=== PATIENT | male | born 1960 | race Caucasian/White ===

== ENCOUNTER 2019-11-10 18:25 | Emergency (ER) | payer BC, OTHER ==
[~2019-11-10] VITALS: Ht 185.4 cm; Wt 108.7 kg
--- OUTSIDE RECORDS SUMMARY | 2019-11-10 18:32 | XMS REPORT ---
Author Author Rodrick Gilman [facility] Address [address] [place], [place] [address] Care Team Providers Care Him Manager Name Role Phone Vinnie Gilman PCP VINNIE JC PreferredProvider Allergies and Adverse Reactions Name Reaction Notes NO KNOWN DRUG ALLERGIES Plan of Treatment Not available. Medications Active Name Start Date Estimated Completion Date SIG Co mments allopurinol oral tablet 300 mg 11/06/2014 t michelle 1 tablet (300 mg) by oral route 2 times per day lisinopril-hydrochlorothiazide oral tablet 20-25 mg 12/18/2014 TAKE 1 TABLET BY MOUTH EVERY DAY lisinopril-hydrochlorothiazide 20-25 mg oral tablet 01/22/2015 TAKE 1 TABLET BY MOUTH DAILY lisinopril-hydrochlorothiazide 20-25 mg oral tablet 04/23/2015 TAKE 1 TABLET BY MOUTH DAILY allopurinol 300 mg oral tablet 05/19/2015 T MICHELLE 1 TABLET (300 MG) BY ORAL ROUTE 2 TIMES PER DAY Contrave 8-90 mg oral tablet extended release 05/19/2015 USE DIRECTED Contrave 8-90 mg oral tablet extended release 06/23/2015 USE DIRECTED lisinopril-hydrochlorothiazide 20-25 mg oral tablet 08/21/2015 TAKE 1 TABLET BY MOUTH DAILY lisinopril-hydrochlorothiazide 20-25 mg oral tablet 10/30/2015 TAKE 1 TABLET BY MOUTH DAILY lisinopril-hydrochlorothiazide 20-25 mg oral tablet 05/05/2016 TAKE 1 TABLET BY MOUTH DAILY indomethacin 50 mg oral capsule 10/14/2017 take 1 capsule (50 mg) by oral route 3 times per day with food for gout flare lisinopril-hydrochlorothiazide 20-25 mg oral tablet 02/08/2018 TAKE 1 TABLET BY MOUTH EVERY DAY Name Start Date Expiration Date SIG Comments Dewey Oral Tablet 5-40 mg 01/27/2010 05/27/2010 take 1 tablet (5-40 mg) by oral route daily for 30 days Medrol (Landon) Oral Tablets, Dose Pack 4 mg 02/08/2011 011 take as directed for 6 days Mobic Oral Tablet 15 mg 02/08/2011 04/09/2011 take 1 t ablet (15 mg) by oral route once daily for 30 days phentermine Oral tablet 37.5 mg 01/18/2012 1/2 po in the am lovastatin Oral Tablet 20 mg 09/27/2012 04/25/2013 sanjay e 1 tablet (20 mg) by oral route once daily with the evening meal for 30 days Contrave oral tablet extended release 8-90 mg 11/12/2014 take 2 tablets by oral route 2 times per day in the morning and evening for 30 days phentermine 37.5 mg oral tablet 08/20/2016 09/19/2016 take 1 tablet (37.5 mg) by oral route once daily one or two hours after breakfast for 30 days Discontinued Name Start Date Discontinued Date SIG Comments Lasix Oral Tablet 20 mg 12/22/2009 02/15/2018 one daily as need ed for edema allopurinol 300 mg oral tablet 09/24/2015 02/15/2018 T MICHELLE 1 TABLET (300 MG) BY ORAL ROUTE 2 TIMES PER DAY Contrave 8-90 mg oral tablet extended release 02/19/2016 USE DIRECTED Problem List Description Status Onset Hyperlipidemia Active Gout Active 11/19/2013 Non morbid obesity due to excess calories Active 08/20/2016 Hypercholesteremia Active 08/20/2016 Lipoma of head Active 08/20/2016 Essential hypertension Active 01/24/2018 Vital Signs Date Time BP-Sys(mm[Hg] BP-Mary Jo(mm[Hg]) HR(bpm) RR(rpm) Temp WT HT HC BMI BSA BMI Percentile O2 Sat(%) 02/15/2018 3:28:00 PM 132 mmHg 80 mmHg 71 bpm 16 rpm 98.4 F 249 lbs 73 in 32.8513 kg/m 2.4119 m 97 % 01/19/2018 7:54:00 AM 116 mmHg 76 mmHg 72 bpm 16 rpm 98.4 F 246 lbs 73 in 32.46 kg/m2 2.40 m2 98 % 08/20/2016 10:36:00 AM 128 mmHg 64 mmHg 86 bpm 16 rpm 97.4 F 262 lbs 73 in 34.5664 kg/m 2.4741 m 99 % 11/11/2014 3:26:00 PM 130 mmHg 60 mmHg 90 bpm 18 rpm 98.2 F 267 lbs 74 in 34.28 kg/m2 2.51 m2 97 % 11/26/2013 3:08:00 PM 144 mmHg 68 mmHg 78 bpm 20 rpm 98.8 F 268 lbs 74 in 34.4088 kg/m 2.5193 m 98 % 09/11/2012 3:05:00 PM 136 mmHg 80 mmHg 88 bpm 20 rpm 98.2 F 275 lbs 74 in 35.31 kg/m2 2.55 m2 97 % 01/17/2012 3:07:00 PM 118 mmHg 68 mmHg 82 bpm 278 lbs 74 in 35.6927 kg/m 2.5659 m 97 % 09/14/2010 3:11:00 PM 124 mmHg 82 mmHg 80 bpm 278 lbs 74 in 35.6927 kg/m 2.57 m2 12/22/2009 3:26:00 PM 142 mmHg 100 mmHg 80 bpm 271 lbs Social History Name Description Comments Uses seatbelts Alcohol Use - Occasional Tobacco Never smoker History of Procedures Date Ordered Description Order Status 08/20/2016 12:00 AM COMPLETE CBC W/AUTO DIFF WBC Returned 08/20/2016 12:00 AM COMPREHEN METABOLIC PANEL Returned 08/20/2016 12:00 AM LIPID PANEL Returned 08/20/2016 12:00 AM ROUTINE VENIPUNCTURE Reviewed 05/05/2017 12:00 AM COMPLETE CBC W/AUTO DIFF WBC Returned 05/05/2017 12:00 AM COMPREHEN METABOLIC PANEL Returned 05/05/2017 12:00 AM LIPID PANEL Returned 05/05/2017 12:00 AM ASSAY OF PSA TOTAL Returned 05/05/2017 12:00 AM ROUTINE VENIPUNCTURE Reviewed 09/11/2012 12:00 AM URINALYSIS AUTO W/O SCOPE Reviewed 09/11/2012 12:00 AM URINALYSIS AUTO W/O SCOPE Reviewed 01/13/2018 12:00 AM COMPLETE CBC W/AUTO DIFF WBC Returned 01/13/2018 12:00 AM COMPREHEN METABOLIC PANEL Returned 01/13/2018 12:00 AM LIPID PANEL Returned 01/13/2018 12:00 AM ROUTINE VENIPUNCTURE Reviewed 01/18/2018 12:00 AM ASSAY OF PSA TOTAL Returned 01/18/2018 12:00 AM ASSAY OF PSA FREE Returned 05/28/2013 12:00 AM COMPLETE CBC W/AUTO DIFF WBC Reviewed 05/28/2013 12:00 AM COMPREHEN METABOLIC PANEL Reviewed 05/28/2013 12:00 AM LIPID PANEL Reviewed 11/19/2013 12:00 AM COMPLETE CBC W/AUTO DIFF WBC Reviewed 11/19/2013 12:00 AM COMPREHEN METABOLIC PANEL Reviewed 11/19/2013 12:00 AM LIPID PANEL Reviewed 11/19/2013 12:00 AM Prostate Cancer Screening Reviewed 11/19/2013 12:00 AM ASSAY OF BLOOD/URIC ACID Reviewed 09/15/2010 12:00 AM URINALYSIS AUTO W/O SCOPE Reviewed 10/16/2014 12:00 AM COMPLETE CBC W/AUTO DIFF WBC Reviewed 10/16/2014 12:00 AM COMPREHEN METABOLIC PANEL Reviewed 10/16/2014 12:00 AM LIPID PANEL Reviewed 10/16/2014 12:00 AM Prostate Cancer Screening Reviewed 10/16/2014 12:00 AM ASSAY OF BLOOD/URIC ACID Reviewed Results Summary Date and Description Results 06/01/2013 6:30 AM WBC 5.3 RBC 4.68 HGB 14.90 g /dLHCT 44.80 %MCV 96.0 fLMCH 31.80 pgMCHC 33.30 g/dLRDW SD 45 RDW CV 13.0 %MPV 10.50 fLPLT 191 NRBC# 0.00 NRBC% 0.0 %NEUT 64.70 %%LYMP 24.10 %%MONO 8.70 %%EOS 2.10 %%BASO 0.40 %#NEUT 3.44 #LYMP 1.28 #MONO 0.46 #EOS 0.11 #BASO 0.02 MANUAL DIFF NOT IND GLUCOSE 111.0 mg/dLSODIUM 142.0 mmol/LPOTASSIUM 4.0 mmol/LCHLORIDE 105.0 mmol/LCO2 25.0 mmol/LBUN 17.0 mg/dLCREATININE 1.10 mg/dLSGOT/AST 23.0 IU/LSGPT/ALT 20.0 IU/LALK PHOS 59.0 IU/LTOTAL PROTEIN 6.90 g/dLALBUMIN 4.0 g/dLTOTAL BILI 0.80 mg/dLCALCIUM 9.50 mg/dLAGE 53 GFR NonAA 70 GFR AA 85 eGFR >60 mL/min/1.73 m2eGFR AA* >60 TRIGLYCERIDES 91.0 mg/dLCHOLESTEROL 222.0 mg/dLHDL 64.0 mg/dLTOT CHOL/HDL 3.5 LDL (CALC) 140.0 mg/dL 11/21/2013 6:25 AM URIC ACID 9.5 mg/dLWBC 4.8 R BC 4.57 HGB 14.50 g/dLHCT 43.20 %MCV 95.0 fLMCH 31.70 pgMCHC 33.60 g/dLRDW SD 45 RDW CV 12.90 %MPV 10.80 fLPLT 199 NRBC# 0.00 NRBC% 0.0 %NEUT 56.60 %%LYMP 30.50 %%MONO 10.20 %%EOS 1.70 %%BASO 1.0 %#NEUT 2.73 #LYMP 1.47 #MONO 0.49 #EOS 0.08 #BASO 0.05 MANUAL DIFF NOT IND GLUCOSE 94.0 mg/dLSODIUM 142.0 mmol/LPOTASSIUM 4.40 mmol/LCHLORIDE 105.0 mmol/LCO2 29.0 mmol/LBUN 18.0 mg/dLCREATININE 1.0 mg/dLSGOT/AST 19.0 IU/LSGPT/ALT 15.0 IU/LALK PHOS 53.0 IU/LTOTAL PROTEIN 7.10 g/dLALBUMIN 3.90 g/dLTOTAL BILI 0.90 mg/dLCALCIUM 9.60 mg/dLAGE 53 GFR NonAA 78 GFR AA 95 eGFR 60 eGFR AA* 60 TRIGLYCERIDES 87.0 mg/dLCHOLESTEROL 197.0 mg/dLHDL 58.0 mg/dLTOT CHOL/HDL 3.4 LDL (CALC) 122.0 mg/dLPSA TOTAL 0.70 ng/mL 10/24/2014 6:25 AM WBC 5.2 RBC 4.58 HGB 14.60 g /dLHCT 44.10 %MCV 96.0 fLMCH 31.90 pgMCHC 33.10 g/dLRDW SD 46 RDW CV 13.0 %MPV 10.40 fLPLT 171 NRBC# 0.00 NRBC% 0.0 %NEUT 59.50 %%LYMP 26.90 %%MONO 10.30 %%EOS 2.50 %%BASO 0.80 %#NEUT 3.07 #LYMP 1.39 #MONO 0.53 #EOS 0.13 #BASO 0.04 MANUAL DIFF NOT IND GLUCOSE 106.0 mg/dLSODIUM 142.0 mmol/LPOTASSIUM 4.0 mmol/LCHLORIDE 110.0 mmol/LCO2 24.0 mmol/LBUN 12.0 mg/dLCREATININE 1.10 mg/dLSGOT/AST 17.0 IU/LSGPT/ALT 18.0 IU/LALK PHOS 43.0 IU/LTOTAL PROTEIN 6.80 g/dLALBUMIN 3.90 g/dLTOTAL BILI 0.50 mg/dLCALCIUM 9.70 mg/dLAGE 54 GFR NonAA 70 GFR AA 85 eGFR >60 mL/min/1.73 m2eGFR AA* >60 PSA TOTAL 0.630 ng/mLTRIGLYCERIDES 79.0 mg/dLCHOLESTEROL 216.0 mg/dLHDL 58.0 mg/dLTOT CHOL/HDL 3.7 LDL (CALC) 142.0 mg/dLURIC ACID 9.4 mg/dL History Of Immunizations Not available. History of Past Illness Name Date of Onset Comments Hypertension Hyperlipidemia Essential Hypertension Dec 22 2009 3:27PM Edema Dec 22 2009 3:27PM General Medical Exam, Adult Dec 22 2009 3:27PM Gout Dec 22 2009 3:27PM Gout 11/19/2013 General Medical Exam, Adult Sep 14 2010 3:10PM Non morbid obesity due to excess calories 08/20/2016 Hypercholesteremia 08/20/2016 Lipoma of head 08/20/2016 Essential hypertension 01/24/2018 Essential Hypertension Jan 17 2012 3:11PM Body Mass Index [BMI]; body mass index b etween 30-39, adult; body mass index 30.0-30.9, adult Jan 17 2012 3:11PM General Medical Exam, Adult Sep 11 2012 3:07PM Hypertension May 28 2013 4:26PM Hyperlipidemia May 28 2013 4:26PM alf medication use May 28 2013 4:26PM Hypertension Nov 19 2013 4:26PM Hyperlipidemia Nov 19 2013 4:26PM Gout Nov 19 2013 4:26PM alf medication use Nov 19 2013 4:26PM Screening For Prostate Cancer Nov 19 2013 4:26PM Essential Hypertension Nov 26 2013 3:09PM Gout Nov 26 2013 3:09PM Hyperlipidemia Nov 26 2013 3:09PM Hypertension Oct 16 2014 3:43PM Hyperlipidemia Oct 16 2014 3:43PM Gout Oct 16 2014 3:43PM alf medication use Oct 16 2014 3:43PM Screening For Prostate Cancer Oct 16 2014 3:43PM Body Mass Index [BMI]; body mass index b etween 30-39, adult; body mass index 32.0-32.9, adult Nov 11 2014 3:27PM Gout Nov 11 2014 3:27PM Hypertension Nov 11 2014 3:27PM Hyperlipidemia Nov 11 2014 3:27PM Hypertension Aug 20 2016 11:43AM Hyperlipidemia Aug 20 2016 11:43AM Gout Aug 20 2016 11:43AM termite inspector medication use Aug 20 2016 11:43AM Non morbid obesity due to excess calories Aug 20 2016 10:38A M Hypertension Aug 20 2016 10:38AM Hypercholesteremia Aug 20 2016 10:38AM Lipoma of head Aug 20 2016 10:38AM Hypertension May 05 2017 7:11AM Hyperlipidemia May 05 2017 7:11AM Gout May 05 2017 7:11AM alf medication use May 05 2017 7:11AM Elevated PSA May 05 2017 7:11AM Hypertension Jan 13 2018 10:46AM Hyperlipidemia Jan 13 2018 10:46AM Gout Jan 13 2018 10:46AM termite inspector medication use Jan 13 2018 10:46AM Elevated PSA Jan 13 2018 10:46AM Elevated PSA Jan 18 2018 8:18AM Hypercholesteremia Jan 19 2018 7:55AM Essential hypertension Jan 19 2018 7:55AM History of gout Jan 19 2018 7:55AM Colon Cancer Screening Feb 15 2018 3:29PM Subcutaneous mass Feb 15 2018 3:29PM Payers Insurance Name Company Name Plan Name Plan Number Policy Number Yoan Group Number Start Date BCBS Bcbs [facility] [id number] N/ A [facility] [phone] May [employer] DOT 4-25- N/A BCBS Bcbs [facility] [id number] N/ A History of Encounters Visit Date Visit Type Provider 02/15/2018 Office visit Vinnie Gilman MD 01/19/2018 Office visit VINNIE BELTRAN 01/13/2018 Laboratory VINNIE BELTRAN 05/05/2017 Laboratory VINNIE BELTRAN 08/20/2016 Voided VINNIE JC PA 08/20/2016 Office visit VINNIE JC PA 11/11/2014 Office visit VINNIE BELTRAN 11/26/2013 Office visit VINNIE BELTRAN 09/11/2012 Office visit VINNIE BELTRAN 01/17/2012 Office visit VINNIE BELTRAN 09/14/2010 Office visit Vinnie LandinC 12/22/2009 Office visit Vinnie West
--- OUTSIDE RECORDS SUMMARY | 2019-11-10 18:32 | XMS REPORT ---
Author Author Rodrick Gilman [facility] oup Address [address] [place], [place] [id number] Care Team Providers Care Induction Coordination Power Engineer Name Role Phone Vinnie Gilman PCP VINNIE [...] HC BMI BSA BMI Percentile O2 Sat(%) 03/13/2018 3:19:00 PM 120 mmHg 86 mmHg 71 bpm 16 rpm 98.1 F 242 lbs 73 in 31.9277 kg/m 2.3778 m 97 % 02/15/2018 3:28:00 PM 132 mmHg 80 mmHg 71 bpm 16 rpm 98.4 F 249 lbs 73 in 32.85 kg/m2 2.41 m2 97 % 01/19/2018 7:54:00 AM 116 mmHg 76 mmHg 72 bpm 16 rpm 98.4 F 246 lbs 73 in 32.4555 kg/m 2.3973 m 98 % 08/20/2016 10:36:00 AM 128 mmHg 64 mmHg 86 bpm 16 rpm 97.4 F 262 lbs 73 in 34.57 kg/m2 2.47 m2 99 % 11/11/2014 3:26:00 PM 130 mmHg 60 mmHg 90 bpm 18 rpm 98.2 F 267 lbs 74 in 34.2804 kg/m 2.5146 m 97 % 11/26/2013 3:08:00 PM 144 mmHg 68 mmHg 78 bpm 20 rpm 98.8 F 268 lbs 74 in 34.41 kg/m2 2.52 m2 98 % 09/11/2012 3:05:00 PM 136 mmHg 80 mmHg 88 bpm 20 rpm 98.2 F 275 lbs 74 in 35.3075 kg/m 2.552 m 97 % 01/17/2012 3:07:00 PM 118 mmHg 68 mmHg 82 bpm 278 lbs 74 in 35.69 kg/m2 2.57 m2 97 % 09/14/2010 3:11:00 PM 124 mmHg 82 mmHg 80 bpm 278 lbs 74 in 35.6927 kg/m 2.5659 m 12/22/2009 3:26:00 PM 142 mmHg 100 mmHg [...] 2013 4:26PM Hyperlipidemia May 28 2013 4:26PM intermediate designer medication use May 28 2013 4:26PM Hypertension Nov 19 2013 4:26PM Hyperlipidemia Nov 19 2013 4:26PM Gout Nov 19 2013 4:26PM group home medication use Nov 19 2013 4:26PM Screening For Prostate Cancer Nov 19 2013 4:26PM Essential Hypertension Nov 26 2013 3:09PM Gout Nov 26 2013 3:09PM Hyperlipidemia Nov 26 2013 3:09PM Hypertension Oct 16 2014 3:43PM Hyperlipidemia Oct 16 2014 3:43PM Gout Oct 16 2014 3:43PM intermediate designer medication use Oct 16 2014 3:43PM Screening [...] 2016 11:43AM Gout Aug 20 2016 11:43AM group home medication use Aug 20 2016 11:43AM Non morbid obesity due to excess calories Aug 20 2016 10:38A M Hypertension Aug 20 2016 10:38AM Hypercholesteremia Aug 20 2016 10:38AM Lipoma of head Aug 20 2016 10:38AM Hypertension May 05 2017 7:11AM Hyperlipidemia May 05 2017 7:11AM Gout May 05 2017 7:11AM intermediate designer medication use May 05 2017 7:11AM Elevated PSA May 05 2017 7:11AM Hypertension Jan 13 2018 10:46AM Hyperlipidemia Jan 13 2018 10:46AM Gout Jan 13 2018 10:46AM intermediate designer medication use Jan 13 2018 10:46AM Elevated PSA Jan 13 2018 10:46AM Elevated PSA Jan 18 2018 8:18AM Hypercholesteremia Jan 19 2018 7:55AM Essential hypertension Jan 19 2018 7:55AM History of gout Jan 19 2018 7:55AM Colon Cancer Screening Feb 15 2018 3:29PM Subcutaneous mass Feb 15 2018 3:29PM Encounter for examination following surgery Mar 13 2018 3:2 0PM Postoperative Follow-up Mar 13 2018 3:20PM Payers Insurance Name Company Name Plan Name Plan Number Policy Number Yoan cy Group Number Start Date BCBS [employer] [facility] [place] [id number] N/ A [facility] [phone] May [employer] DOT 09-14-10 N/A BCBS [employer] [facility] [place] [id number] N/ A History of Encounters Visit Date Visit Type Provider 03/13/2018 Office visit Vinnie Gilman MD 03/03/2018 Surgery Vinnie Gilman MD 02/15/2018 Office visit Vinnie Gilman MD 01/19/2018 Office visit VINNIE BELTRAN 01/13/2018 Laboratory VINNIE BELTRAN 05/05/2017 Laboratory VINNIE BELTRAN 08/20/2016 Voided VINNIE BELTRAN 08/20/2016 Office visit VINNIE BELTRAN 11/11/2014 Office visit VINNIE BELTRAN 11/26/2013 Office visit VINNIE BELTRAN 09/11/2012 Office visit VINNIE BELTRAN 01/17/2012 Office visit VINNIE BELTRAN 09/14/2010 Office visit Vinnie West 12/22/2009 Office visit Vinnie West
--- OUTSIDE RECORDS SUMMARY | 2019-11-10 18:32 | XMS REPORT ---
Author Author Rodrick JC [facility] oup Address [address] [place], [place] [address] Care Team Providers Care Supervisor Carding Name Role Phone VINNIE JC PCP VINNIE JC PreferredProvider Allergies and Adverse Reactions Name Reaction Notes NO KNOWN DRUG ALLERGIES Plan of Treatment Not available. Medications Active Name Start Date Estimated Completion Date SIG Co mments Lasix Oral Tablet 20 mg 12/22/2009 one daily as need ed for edema allopurinol oral tablet 300 mg 11/06/2014 t [...] 08/21/2015 TAKE 1 TABLET BY MOUTH DAILY allopurinol 300 mg oral tablet 09/24/2015 T MICHELLE 1 TABLET (300 MG) BY ORAL ROUTE 2 TIMES PER DAY lisinopril-hydrochlorothiazide 20-25 mg oral tablet 10/30/2015 TAKE 1 TABLET BY MOUTH DAILY lisinopril-hydrochlorothiazide 20-25 mg oral tablet 05/05/2016 TAKE 1 TABLET BY MOUTH DAILY indomethacin 50 mg oral capsule 10/14/2017 take 1 capsule (50 mg) by oral route 3 times per day with food for gout flare lisinopril-hydrochlorothiazide 20-25 mg oral tablet 01/11/2018 TAKE 1 TABLET BY MOUTH EVERY DAY [...] days phentermine Oral tablet 37.5 mg 01/18/2012 1/ po in the am lovastatin Oral Tablet [...] Name Start Date Discontinued Date SIG Comments Contrave 8-90 mg oral tablet extended release 02/19/2016 USE DIRECTED Problem List Description Status Onset Hyperlipidemia Active Gout Active 11/19/2013 Non morbid obesity due to excess calories Active 08/20/2016 Hypercholesteremia Active 08/20/2016 Lipoma of head Active 08/20/2016 Essential hypertension Active 01/24/2018 Vital Signs Date Time BP-Sys(mm[Hg] BP-Mary Jo(mm[Hg]) HR(bpm) RR(rpm) Temp WT HT HC BMI BSA BMI Percentile O2 Sat(%) 01/19/2018 7:54:00 AM 116 mmHg 76 mmHg [...] 2013 4:26PM Hyperlipidemia May 28 2013 4:26PM jail medication use May 28 2013 4:26PM Hypertension Nov 19 2013 4:26PM Hyperlipidemia Nov 19 2013 4:26PM Gout Nov 19 2013 4:26PM jail medication use Nov 19 2013 4:26PM Screening For Prostate Cancer Nov 19 2013 4:26PM Essential Hypertension Nov 26 2013 3:09PM Gout Nov 26 2013 3:09PM Hyperlipidemia Nov 26 2013 3:09PM Hypertension Oct 16 2014 3:43PM Hyperlipidemia Oct 16 2014 3:43PM Gout Oct 16 2014 3:43PM jail medication use Oct 16 2014 3:43PM Screening [...] 2016 11:43AM Gout Aug 20 2016 11:43AM jail medication use Aug 20 2016 11:43AM Non morbid obesity due to excess calories Aug 20 2016 10:38A M Hypertension Aug 20 2016 10:38AM Hypercholesteremia Aug 20 2016 10:38AM Lipoma of head Aug 20 2016 10:38AM Hypertension May 05 2017 7:11AM Hyperlipidemia May 05 2017 7:11AM Gout May 05 2017 7:11AM 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 DOT 4-25-11 N/A History of Encounters Visit Date Visit Type Provider 01/19/2018 Office visit VINNIE BELTRAN 01/13/2018 Laboratory VINNIE BELTRAN 05/05/2017 Laboratory VINNIE BELTRAN 08/20/2016 Voided VINNIE BELTRAN 08/20/2016 Office visit VINNIE BELTRAN 11/11/2014 Office visit VINNIE BELTRAN 11/26/2013 Office visit VINNIE BELTRAN 09/11/2012 Office visit VINNIE BELTRAN 01/17/2012 Office visit VINNIE BELTRAN 09/14/2010 Office visit Vinnie West 12/22/2009 Office visit Vinnie West
--- OUTSIDE RECORDS SUMMARY | 2019-11-10 18:33 | XMS REPORT ---
Author Author Rodrick JC [facility] Phys[facility] oup Address [address] [place], [place] [address] Care Team Providers Care Professor Of Religious Studies Name Role Phone VINNIE JC PCP VINNIE JC PreferredProvider Allergies and Adverse Reactions Name Reaction Notes NO KNOWN DRUG ALLERGIES Plan of Treatment Planned Activity Comments Planned Date Planned Time Plan/Goal CBC with Differential 01/13/2018 12:00 AM CMP 01/13/2018 12:00 AM Lipid Blood Profile 01/13/2018 12:00 AM Medications Active Name Start Date Estimated Completion [...] 30 days phentermine Oral tablet 37.5 mg 01/18/2012/ po in the am lovastatin Oral Tablet [...] Active 08/20/2016 Lipoma of head Active 08/20/2016 Vital Signs Date Time BP-Sys(mm[Hg] BP-Mary Jo(mm[Hg]) HR(bpm) RR(rpm) Temp WT HT HC BMI BSA BMI Percentile O2 Sat(%) 08/20/2016 10:36:00 AM 128 mmHg 64 mmHg [...] AUTO W/O SCOPE Reviewed 01/13/2018 12:00 AM ROUTINE VENIPUNCTURE Reviewed 05/28/2013 12:00 AM COMPLETE CBC W/AUTO DIFF [...] Hypercholesteremia 08/20/2016 Lipoma of head 08/20/2016 Essential Hypertension Jan 17 2012 3:11PM Body Mass Index [BMI]; body mass index b etween 30-39, adult; body mass index 30.0-30.9, adult Jan 17 2012 3:11PM General Medical Exam, Adult Sep 11 2012 3:07PM Hypertension May 28 2013 4:26PM Hyperlipidemia May 28 2013 4:26PM [facility] medication use May 28 2013 4:26PM Hypertension Nov 19 2013 4:26PM Hyperlipidemia Nov 19 2013 4:26PM Gout Nov 19 2013 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 2013 4:26PM Screening For Prostate Cancer Nov 19 2013 4:26PM Essential Hypertension Nov 26 2013 3:09PM Gout Nov 26 2013 3:09PM Hyperlipidemia Nov 26 2013 3:09PM Hypertension Oct 16 2014 3:43PM Hyperlipidemia Oct 16 2014 3:43PM Gout Oct 16 2014 3:43PM [facility] medication use Oct 16 2014 3:43PM Screening [...] 2016 11:43AM Gout Aug 20 2016 11:43AM [facility] medication use Aug 20 2016 11:43AM Non morbid obesity due to excess calories Aug 20 2016 10:38A M Hypertension Aug 20 2016 10:38AM Hypercholesteremia Aug 20 2016 10:38AM Lipoma of head Aug 20 2016 10:38AM Hypertension May 05 2017 7:11AM Hyperlipidemia May 05 2017 7:11AM Gout May 05 2017 7:11AM service crew supervisor medication use May 05 2017 7:11AM Elevated PSA May 05 2017 7:11AM Hypertension Jan 13 2018 10:46AM Hyperlipidemia Jan 13 2018 10:46AM Gout Jan 13 2018 10:46AM [facility] medication use Jan 13 2018 10:46AM Elevated PSA Jan 13 2018 10:46AM Payers Insurance Name Company Name Plan Name Plan Number Policy Number Yoan cy Group Number Start Date BCBS Bcbs [facility] [id number] N/ A [facility] [phone] May [employer] DOT 4-25-11 N/A History of Encounters Visit Date Visit Type Provider 01/13/2018 Laboratory VINNIE BELTRAN 05/05/2017 Laboratory VINNIE BELTRAN 08/20/2016 Voided VINNIE BELTRAN 08/20/2016 Office visit VINNIE BELTRAN 11/11/2014 Office visit VINNIE BELTRAN 11/26/2013 Office visit VINNIE BELTRAN 09/11/2012 Office visit VINNIE BELTRAN 01/17/2012 Office visit VINNIE BELTRAN 09/14/2010 Office visit Vinnie West 12/22/2009 Office visit Vinnie West
--- OUTSIDE RECORDS SUMMARY | 2019-11-10 18:33 | XMS REPORT ---
Author [facility] Organization [facility] ou Address [address] [place], [place] [id number] Care Team Providers Care Technical Sme Name Role Phone PCP Unavailable Allergies and Adverse Reactions Name Reaction Notes NO KNOWN DRUG ALLERGIES Plan of Treatment Not available. Medications Active Name Start Date Estimated Completion Date SIG Co mments Lasix Oral Tablet 20 mg 12/22/2009 one daily as need ed for edema indomethacin oral capsule 50 mg 04/16/2014 take 1 capsule (50 mg) by oral route 3 times per day with food for gout flare lisinopril-hydrochlorothiazide Oral tablet 20-25 mg 10/16/2014 12/15/2014 TAKE 1 TABLET BY MOUTH EVERY DAY allopurinol oral tablet 300 mg 11/06/2014 t corina 1 tablet (300 mg) by oral route 2 times per day Contrave oral tablet extended release 8-90 mg 11/12/2014 take 2 tablets by oral route 2 times per day in the morning and evening for 30 days Name Start Date Expiration Date SIG Comments [...] with the evening meal for 30 days Problem List Description Status Onset Hypertension Active Hyperlipidemia Active Gout Active 11/19/2013 Vital Signs Date Time BP-Sys(mm[Hg] BP-Mary Jo(mm[Hg]) HR(bpm) RR(rpm) Temp WT HT HC BMI BSA BMI Percentile O2 Sat(%) 11/11/2014 3:26:00 PM 130 mmHg 60 mmHg [...] mmHg 80 bpm 278 lbs 74 in 35.69 kg/m2 2.57 m2 12/22/2009 3:26:00 PM 142 mmHg 100 mmHg 80 bpm 271 lbs Social History Name Description Comments Alcohol Use - Occasional Tobacco Never smoker History of Procedures Date Ordered Description Order Status 09/11/2012 12:00 AM URINALYSIS AUTO W/O SCOPE Reviewed 09/11/2012 12:00 AM URINALYSIS AUTO W/O SCOPE Reviewed 05/28/2013 12:00 AM COMPLETE CBC W/AUTO DIFF WBC Returned 05/28/2013 12:00 AM COMPREHEN METABOLIC PANEL Returned 05/28/2013 12:00 AM LIPID PANEL Returned 11/19/2013 12:00 AM COMPLETE CBC W/AUTO DIFF WBC Reviewed 11/19/2013 12:00 AM COMPREHEN METABOLIC PANEL Reviewed 11/19/2013 12:00 AM LIPID PANEL Reviewed 11/19/2013 12:00 AM ASSAY OF BLOOD/URIC ACID Reviewed 09/15/2010 12:00 AM URINALYSIS AUTO W/O SCOPE Reviewed 10/16/2014 12:00 AM COMPLETE CBC W/AUTO DIFF WBC Returned 10/16/2014 12:00 AM COMPREHEN METABOLIC PANEL Returned 10/16/2014 12:00 AM LIPID PANEL Returned 10/16/2014 12:00 AM ASSAY OF BLOOD/URIC ACID Returned Results Summary Data and Description Results 12/26/2009 6:23 AM TRIGLYCERIDES 77.0 mg/dLCHOL ESTEROL 199.0 mg/dLHDL 68.0 mg/dLLDL 105.0 mg/dLURIC ACID 6.9 mg/dLWBC 5.9 RBC 4.84 HGB 15.20 g/dLHCT 45.60 %MCV 94.0 fLMCH 31.40 pgMCHC 33.30 g/dLRDW CV 13.50 %MPV 10.80 fLPLT 183 %NEUT 56.80 %%LYMP 29.40 %%MONO 10.0 %%EOS 3.10 %%BASO 0.70 %#NEUT 3.35 #LYMP 1.73 #MONO 0.59 #EOS 0.18 #BASO 0.04 GLUCOSE 93.0 mg/dLSODIUM 139.0 mmol/LPOTASSIUM 4.90 mmol/LCHLORIDE 108.0 mmol/LCO2 18.0 mmol/LBUN 12.0 mg/dLCREATININE 0.90 mg/dLSGOT/AST 25.0 IU/LSGPT/ALT 19.0 IU/LALK PHOS 46.0 IU/LTOTAL PROTEIN 7.50 g/dLALBUMIN 4.0 g/dLTOTAL BILI 0.30 mg/dLCALCIUM 9.30 mg/dLeGFR >60 mL/min/1.73 m2 05/27/2011 6:50 AM WBC 5.6 RBC 4.78 HGB 15.40 g /dLHCT 46.60 %MCV 98.0 fLMCH 32.20 pgMCHC 33.0 g/dLRDW CV 12.80 %MPV 10.90 fLPLT 205 GLUCOSE 102.0 mg/dLSODIUM 141.0 mmol/LPOTASSIUM 4.30 mmol/LCHLORIDE 102.0 mmol/LCO2 29.0 mmol/LBUN 20.0 mg/dLCREATININE 1.10 mg/dLSGOT/AST 27.0 IU/LSGPT/ALT 36.0 IU/LALK PHOS 55.0 IU/LTOTAL PROTEIN 7.50 g/dLALBUMIN 4.40 g/dLTOTAL BILI 0.70 mg/dLCALCIUM 10.0 mg/dLeGFR >60 mL/min/1.73 [id number] 98.0 mg/dLCHOLESTEROL 257.0 mg/dLHDL 65.0 mg/dLLDL (CALC) 172.0 mg/dLPSA TOTAL 0.640 ng/mL 12/23/2011 7:10 AM TRIGLYCERIDES 73.0 mg/dLCHOL ESTEROL 203.0 mg/dLHDL 64.0 mg/dLLDL 114.0 mg/dLGLUCOSE 103.0 mg/dLSODIUM 139.0 mmol/LPOTASSIUM 4.0 mmol/LCHLORIDE 108.0 mmol/LCO2 28.0 mmol/LBUN 14.0 mg/dLCREATININE 1.10 mg/dLSGOT/AST 19.0 IU/LSGPT/ALT 20.0 IU/LALK PHOS 46.0 IU/LTOTAL PROTEIN 7.20 g/dLALBUMIN 4.10 g/dLTOTAL BILI 0.60 mg/dLCALCIUM 10.0 mg/dLeGFR 60 09/15/2012 6:50 AM WBC 5.4 RBC 4.88 HGB 15.60 g /dLHCT 46.30 %MCV 95.0 fLMCH 32.0 pgMCHC 33.70 g/dLRDW CV 12.50 %MPV 10.70 fLPLT 185 %NEUT 61.40 %%LYMP 26.20 %%MONO 9.80 %%EOS 2.0 %%BASO 0.60 %#NEUT 3.31 #LYMP 1.41 #MONO 0.53 #EOS 0.11 #BASO 0.03 GLUCOSE 104.0 mg/dLSODIUM 140.0 mmol/LPOTASSIUM 3.80 mmol/LCHLORIDE 103.0 mmol/LCO2 28.0 mmol/LBUN 13.0 mg/dLCREATININE 1.0 mg/dLSGOT/AST 21.0 IU/LSGPT/ALT 18.0 IU/LALK PHOS 50.0 IU/LTOTAL PROTEIN 7.60 g/dLALBUMIN 4.20 g/dLTOTAL BILI 1.0 mg/dLCALCIUM 10.50 mg/dLeGFR 60 TRIGLYCERIDES 123.0 mg/dLCHOLESTEROL 221.0 mg/dLHDL 58.0 mg/dLLDL (CALC) 138.0 mg/dLPSA TOTAL 0.550 ng/mL 06/01/2013 6:30 AM WBC 5.3 RBC 4.68 HGB 14.90 g /dLHCT 44.80 %MCV 96.0 fLMCH 31.80 pgMCHC 33.30 g/dLRDW CV 13.0 %MPV 10.50 fLPLT 191 %NEUT 64.70 %%LYMP 24.10 %%MONO 8.70 %%EOS 2.10 %%BASO 0.40 %#NEUT 3.44 #LYMP 1.28 #MONO 0.46 #EOS 0.11 #BASO 0.02 GLUCOSE 111.0 mg/dLSODIUM 142.0 mmol/LPOTASSIUM 4.0 mmol/LCHLORIDE 105.0 mmol/LCO2 25.0 mmol/LBUN 17.0 mg/dLCREATININE 1.10 mg/dLSGOT/AST 23.0 IU/LSGPT/ALT 20.0 IU/LALK PHOS 59.0 IU/LTOTAL PROTEIN 6.90 g/dLALBUMIN 4.0 g/dLTOTAL BILI 0.80 mg/dLCALCIUM 9.50 mg/dLeGFR >60 mL/min/1.73 [id number] 91.0 mg/dLCHOLESTEROL 222.0 mg/dLHDL 64.0 mg/dLLDL (CALC) 140.0 mg/dL 11/21/2013 6:25 AM URIC ACID 9.5 mg/dLWBC 4.8 R BC 4.57 HGB 14.50 g/dLHCT 43.20 %MCV 95.0 fLMCH 31.70 pgHC 33.60 g/dLRDW CV 12.90 %MPV 10.80 fLPLT 199 %NEUT 56.60 %%LYMP 30.50 %%MONO 10.20 %%EOS 1.70 %%BASO 1.0 %#NEUT 2.73 #LYMP 1.47 #MONO 0.49 #EOS 0.08 #BASO 0.05 GLUCOSE 94.0 mg/dLSODIUM 142.0 mmol/LPOTASSIUM 4.40 mmol/LCHLORIDE 105.0 mmol/LCO2 29.0 mmol/LBUN 18.0 mg/dLCREATININE 1.0 mg/dLSGOT/AST 19.0 IU/LSGPT/ALT 15.0 IU/LALK PHOS 53.0 IU/LTOTAL PROTEIN 7.10 g/dLALBUMIN 3.90 g/dLTOTAL BILI 0.90 mg/dLCALCIUM 9.60 mg/dLeGFR 60 TRIGLYCERIDES 87.0 mg/dLCHOLESTEROL 197.0 mg/dLHDL 58.0 mg/dLLDL (CALC) 122.0 mg/dLPSA TOTAL 0.70 ng/mL 10/24/2014 6:25 AM WBC 5.2 RBC 4.58 HGB 14.60 g /dLHCT 44.10 %MCV 96.0 fLMCH 31.90 pgMCHC 33.10 g/dLRDW CV 13.0 %MPV 10.40 fLPLT 171 %NEUT 59.50 %%LYMP 26.90 %%MONO 10.30 %%EOS 2.50 %%BASO 0.80 %#NEUT 3.07 #LYMP 1.39 #MONO 0.53 #EOS 0.13 #BASO 0.04 GLUCOSE 106.0 mg/dLSODIUM 142.0 mmol/LPOTASSIUM 4.0 mmol/LCHLORIDE 110.0 mmol/LCO2 24.0 mmol/LBUN 12.0 mg/dLCREATININE 1.10 mg/dLSGOT/AST 17.0 IU/LSGPT/ALT 18.0 IU/LALK PHOS 43.0 IU/LTOTAL PROTEIN 6.80 g/dLALBUMIN 3.90 g/dLTOTAL BILI 0.50 mg/dLCALCIUM 9.70 mg/dLeGFR >60 mL/min/1.73 m2PSA TOTAL 0.630 ng/mLTRIGLYCERIDES 79.0 mg/dLCHOLESTEROL 216.0 mg/dLHDL 58.0 mg/dLLDL (CALC) 142.0 mg/dLURIC ACID 9.4 mg/dL History Of Immunizations Not available. 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 DOT -- N/A History of Encounters Visit Date Visit Type Provider 11/11/2014 Office visit VINNIE BELTRAN 11/26/2013 Office visit VINNIE BELTRAN 09/11/2012 Office visit VINNIE BELTRAN 01/17/2012 Office visit VINNIE BELTRAN 09/14/2010 Office visit Vinnie West 12/22/2009 Office visit Vinnie West
--- OUTSIDE RECORDS SUMMARY | 2019-11-10 18:33 | XMS REPORT ---
Author Author Rodrick JC Organization [facility] Physicians oup Address [address] [facility] [address] [place], [place] [id number] Care Team Providers Care Camp Tender Name Role Phone VINNIE JC PCP Unavailable VINNIE JC PreferredProvider Unavailable Allergies and Adverse Reactions Name Reaction [...] per day with food for gout flare allopurinol oral tablet 300 mg 11/06/2014 t [...] 05/05/2016 TAKE 1 TABLET BY MOUTH DAILY lisinopril-hydrochlorothiazide 20-25 mg oral tablet 08/20/2016 01/17/2017 TAKE 1 TABLET BY MOUTH EVERY DAY phentermine 37.5 mg oral tablet 08/20/2016 09/19/2016 take 1 tablet (37.5 mg) by oral route once daily one or two hours after breakfast for 30 days Name Start Date Expiration [...] 30 days phentermine Oral tablet 37.5 mg 01/18/201205/24 po in the am lovastatin Oral Tablet 20 mg 09/27/2012 04/25/2013 sanjay e 1 tablet (20 mg) by oral route once daily with the evening meal for 30 days Contrave oral tablet extended release 8-90 mg 11/12/2014 take 2 tablets by oral route 2 times per day in the morning and evening for 30 days Discontinued Name Start Date [...] Returned 08/20/2016 12:00 AM ROUTINE VENIPUNCTURE Reviewed 09/11/2012 12:00 [...] ASSAY OF BLOOD/URIC ACID Reviewed Results Summary Data and Description Results 12/26/2009 6:23 AM TRIGLYCERIDES 77.0 mg/dLCHOL ESTEROL 199.0 mg/dLHDL 68.0 mg/dLTOT CHOL/HDL 2.9 LDL 105.0 mg/dLURIC ACID 6.9 mg/dLWBC 5.9 RBC 4.84 HGB 15.20 g/dLHCT 45.60 %MCV 94.0 fLMCH 31.40 pgMCHC 33.30 g/dLRDW SD 47 RDW CV 13.50 %MPV 10.80 fLPLT 183 NRBC# 0.00 NRBC% 0.0 %NEUT 56.80 %%LYMP 29.40 %%MONO 10.0 %%EOS 3.10 %%BASO 0.70 %#NEUT 3.35 #LYMP 1.73 #MONO 0.59 #EOS 0.18 #BASO 0.04 MANUAL DIFF NOT IND GLUCOSE 93.0 mg/dLSODIUM 139.0 mmol/LPOTASSIUM 4.90 mmol/L SPECIMEN CHLORIDE 108.0 mmol/LCO2 18.0 mmol/LBUN 12.0 mg/dLCREATININE 0.90 mg/dLSGOT/AST 25.0 IU/LSGPT/ALT 19.0 IU/LALK PHOS 46.0 IU/LTOTAL PROTEIN 7.50 g/dLALBUMIN 4.0 g/dLTOTAL BILI 0.30 mg/dLCALCIUM 9.30 mg/dLAGE 49 GFR NonAA 90 GFR AA 109 eGFR >60 mL/min/1.73 m2eGFR AA* >60 05/27/2011 6:50 AM WBC 5.6 RBC 4.78 HGB 15.40 g /dLHCT 46.60 %MCV 98.0 fLMCH 32.20 pgMCHC 33.0 g/dLRDW SD 46 RDW CV 12.80 %MPV 10.90 fLPLT 205 NRBC# 0.00 NRBC% 0.0 GLUCOSE 102.0 mg/dLSODIUM 141.0 mmol/LPOTASSIUM 4.30 mmol/LCHLORIDE 102.0 mmol/LCO2 29.0 mmol/LBUN 20.0 mg/dLCREATININE 1.10 mg/dLSGOT/AST 27.0 IU/LSGPT/ALT 36.0 IU/LALK PHOS 55.0 IU/LTOTAL PROTEIN 7.50 g/dLALBUMIN 4.40 g/dLTOTAL BILI 0.70 mg/dLCALCIUM 10.0 mg/dLAGE 51 GFR NonAA 71 GFR AA 86 eGFR >60 mL/min/1.73 m2eGFR AA* >60 TRIGLYCERIDES 98.0 mg/dLCHOLESTEROL 257.0 mg/dLHDL 65.0 mg/dLTOT CHOL/HDL 4.0 LDL (CALC) 172.0 mg/dLPSA TOTAL 0.640 ng/mL 12/23/2011 7:10 AM TRIGLYCERIDES 73.0 mg/dLCHOL ESTEROL 203.0 mg/dLHDL 64.0 mg/dLTOT CHOL/HDL 3.2 LDL 114.0 mg/dLGLUCOSE 103.0 mg/dLSODIUM 139.0 mmol/LPOTASSIUM 4.0 mmol/LCHLORIDE 108.0 mmol/LCO2 28.0 mmol/LBUN 14.0 mg/ dLCREATININE 1.10 mg/dLSGOT/AST 19.0 IU/LSGPT/ALT 20.0 IU/LALK PHOS 46.0 IU/LTOTAL PROTEIN 7.20 g/dLALBUMIN 4.10 g/dLTOTAL BILI 0.60 mg/dLCALCIUM 10.0 mg/dLAGE 51 GFR NonAA 71 GFR AA 86 eGFR 60 eGFR AA* 60 09/15/2012 6:50 AM WBC 5.4 RBC 4.88 HGB 15.60 g /dLHCT 46.30 %MCV 95.0 fLMCH 32.0 pgMCHC 33.70 g/dLRDW SD 44 RDW CV 12.50 %MPV 10.70 fLPLT 185 NRBC# 0.00 NRBC% 0.0 %NEUT 61.40 %%LYMP 26.20 %%MONO 9.80 %%EOS 2.0 %%BASO 0.60 %#NEUT 3.31 #LYMP 1.41 #MONO 0.53 #EOS 0.11 #BASO 0.03 MANUAL DIFF NOT IND GLUCOSE 104.0 mg/dLSODIUM 140.0 mmol/LPOTASSIUM 3.80 mmol/LCHLORIDE 103.0 mmol/LCO2 28.0 mmol/LBUN 13.0 mg/dLCREATININE 1.0 mg/dLSGOT/AST 21.0 IU/LSGPT/ALT 18.0 IU/LALK PHOS 50.0 IU/LTOTAL PROTEIN 7.60 g/dLALBUMIN 4.20 g/dLTOTAL BILI 1.0 mg/dLCALCIUM 10.50 mg/dLAGE 52 GFR NonAA 78 GFR AA 95 eGFR 60 eGFR AA* 60 TRIGLYCERIDES 123.0 mg/dLCHOLESTEROL 221.0 mg/dLHDL 58.0 mg/dLTOT CHOL/HDL 3.8 LDL (CALC) 138.0 mg/dLPSA TOTAL 0.550 ng/mL 06/01/2013 [...] LDL (CALC) 142.0 mg/dLURIC ACID 9.4 mg/dL 08/20/2016 4:00 PM WBC 6.2 RBC 4.92 HGB 15.30 g /dLHCT 46.80 %MCV 95.0 fLMCH 31.10 pgMCHC 32.70 g/dLRDW SD 43 RDW CV 12.20 %MPV 11.10 fLPLT 194 NRBC# 0.00 NRBC% 0.0 %NEUT 71.60 %%LYMP 20.20 %%MONO 6.50 %%EOS 0.70 %%BASO 0.70 %#NEUT 4.41 #LYMP 1.24 #MONO 0.40 #EOS 0.04 #BASO 0.04 MANUAL DIFF NOT IND GLUCOSE 110.0 mg/dLSODIUM 141.0 mmol/LPOTASSIUM 3.80 mmol/LCHLORIDE 104.0 mmol/LCO2 26.0 mmol/LBUN 13.0 mg/dLCREATININE 1.0 mg/dLSGOT/AST 21.0 IU/LSGPT/ALT 21.0 IU/LALK PHOS 47.0 IU/LTOTAL PROTEIN 7.30 g/dLALBUMIN 4.30 g/dLTOTAL BILI 0.70 mg/dLCALCIUM 10.50 mg/dLAGE 56 GFR NonAA 77 GFR AA 93 eGFR >60 mL/min/1.73meGFR AA* >60 TRIGLYCERIDES 80.0 mg/dLCHOLESTEROL 237.0 mg/dLHDL 59.0 mg/dLTOT CHOL/HDL 4.0 LDL (CALC) 162.0 mg/dL History Of Immunizations Not available. 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 2013 4:26PM Hypertension Nov 19 2013 4:26PM Hyperlipidemia Nov 19 2013 4:26PM Gout Nov 19 2013 4:26PM FPC medication use Nov 19 2013 4:26PM Screening For Prostate Cancer Nov 19 2013 4:26PM Essential Hypertension Nov 26 2013 3:09PM Gout Nov 26 2013 3:09PM Hyperlipidemia Nov 26 2013 3:09PM Hypertension Oct 16 2014 3:43PM Hyperlipidemia Oct 16 2014 3:43PM Gout Oct 16 2014 3:43PM FPC medication use Oct 16 2014 3:43PM Screening [...] 2016 11:43AM Gout Aug 20 2016 11:43AM FPC medication use Aug 20 2016 11:43AM Non morbid obesity due to excess calories Aug 20 2016 10:38A M Hypertension Aug 20 2016 10:38AM Hypercholesteremia Aug 20 2016 10:38AM Lipoma of head Aug 20 2016 10:38AM Payers Insurance Name Company Name Plan Name Plan Number Policy Number Yoan cy Group [id number] N[facility] A [facility] [phone] May [employer] DOT 4-- N/A History of Encounters Visit Date Visit Type Provider 08/20/2016 Office visit VINNIE BELTRAN 08/20/2016 Office visit VINNIE BELTRAN 11/11/2014 Office visit VINNIE BELTRAN 11/26/2013 Office visit VINNIE BELTRAN 09/11/2012 Office visit VINNIE BELTRAN 01/17/2012 Office visit VINNIE BELTRAN 09/14/2010 Office visit Vinnie West 12/22/2009 Office visit Vinnie West
--- OUTSIDE RECORDS SUMMARY | 2019-11-10 18:33 | XMS REPORT ---
Author Author Rodrick JC [facility] Physicians oup Address [address] [place], [place] [address] Care Team Providers Care Last Code Striper Name Role Phone VINNIE JC PCP VINNIE JC PreferredProvider Allergies and Adverse Reactions Name Reaction Notes NO KNOWN DRUG ALLERGIES Plan of Treatment Planned Activity Comments Planned Date Planned Time Plan/Goal Prostatic Specific Antigen 01/18/2018 12:00 AM Prostatic Specific Antigen 01/18/2018 12:00 AM Medications Active Name Start Date [...] Returned 01/13/2018 12:00 AM ROUTINE VENIPUNCTURE Reviewed 05/28/2013 [...] HGB 14.60 g /dLHCT 44.10 %MCV 96.0 fLH 31.90 pgMCHC 33.10 g/dLRDW SD 46 RDW [...] 2013 4:26PM Hyperlipidemia May 28 2013 4:26PM [facility] medication use May 28 2013 4:26PM Hypertension Nov 19 2013 4:26PM Hyperlipidemia Nov 19 2013 4:26PM Gout Nov 19 2013 4:26PM terminal carman medication use Nov 19 2013 4:26PM Screening For Prostate Cancer Nov 19 2013 4:26PM Essential Hypertension Nov 26 2013 3:09PM Gout Nov 26 2013 3:09PM Hyperlipidemia Nov 26 2013 3:09PM Hypertension Oct 16 2014 3:43PM Hyperlipidemia Oct 16 2014 3:43PM Gout Oct 16 2014 3:43PM terminal carman medication use Oct 16 2014 3:43PM Screening [...] 2016 11:43AM Gout Aug 20 2016 11:43AM [facility] medication use Aug 20 2016 11:43AM Non morbid obesity due to excess calories Aug 20 2016 10:38A M Hypertension Aug 20 2016 10:38AM Hypercholesteremia Aug 20 2016 10:38AM Lipoma of head Aug 20 2016 10:38AM Hypertension May 05 2017 7:11AM Hyperlipidemia May 05 2017 7:11AM Gout May 05 2017 7:11AM [facility] medication use May 05 2017 7:11AM Elevated PSA May 05 2017 7:11AM Hypertension Jan 13 2018 10:46AM Hyperlipidemia Jan 13 2018 10:46AM Gout Jan 13 2018 10:46AM [facility] medication use Jan 13 2018 10:46AM Elevated PSA Jan 13 2018 10:46AM Elevated PSA Jan 18 2018 8:18AM Payers Insurance Name Company Name Plan Name Plan Number Policy Number Yoan cy Group Number Start Date BCBS Bcbs [facility] [id number] N/ A [facility] [phone] May [employer] DOT 4-25-11 N/A History of Encounters Visit Date Visit Type Provider 01/13/2018 Laboratory VINNIE BELTRAN 05/05/2017 Laboratory VINNIE BELTRAN 08/20/2016 Voided VINNIE BETLRAN 08/20/2016 Office visit VINNIE BELTRAN 11/11/2014 Office visit VINNIE BELTRAN 11/26/2013 Office visit VINNIE BELTRAN 09/11/2012 Office visit VINNIE BELTRAN 01/17/2012 Office visit VINNIE BELTRAN 09/14/2010 Office visit Vinnie West 12/22/2009 Office visit Vinnie West
--- OUTSIDE RECORDS SUMMARY | 2019-11-10 18:34 | XMS REPORT ---
Author Author Rodrick JC Organization [facility] Physicians oup Address [address] [facility] [address] [place], [place] [id number] Care Team Providers Care Field Support Engineer Name Role Phone VINNIE JC PCP VINNIE JC PreferredProvider Allergies and Adverse Reactions Name Reaction Notes NO KNOWN DRUG ALLERGIES Plan of Treatment Planned Activity Comments Planned Date Planned Time Plan/Goal CBC with Differential 05/05/2017 12:00 AM CMP 05/05/2017 12:00 AM Lipid Blood Profile 05/05/2017 12:00 AM Prostatic Specific Antigen 05/05/2017 12:00 AM Medications Active Name Start Date [...] MOUTH DAILY lisinopril-hydrochlorothiazide 20-25 mg oral tablet 03/14/2017 07/12/2017 TAKE 1 TABLET BY MOUTH EVERY DAY indomethacin 50 mg oral capsule 04/19/2017 take 1 capsule (50 mg) by oral route 3 times per day with food for gout flare Name Start Date Expiration Date SIG Comments [...] AM ROUTINE VENIPUNCTURE Reviewed 05/05/2017 12:00 AM ROUTINE VENIPUNCTURE Reviewed 09/11/2012 [...] 2013 4:26PM Hyperlipidemia May 28 2013 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 4:26PM Hypertension Nov 19 2013 4:26PM Hyperlipidemia Nov 19 2013 4:26PM Gout Nov 19 2013 4:26PM half-way medication use Nov 19 2013 4:26PM Screening For Prostate Cancer Nov 19 2013 4:26PM Essential Hypertension Nov 26 2013 3:09PM Gout Nov 26 2013 3:09PM Hyperlipidemia Nov 26 2013 3:09PM Hypertension Oct 16 2014 3:43PM Hyperlipidemia Oct 16 2014 3:43PM Gout Oct 16 2014 3:43PM ferry terminal agent medication use Oct 16 2014 3:43PM Screening [...] 2016 11:43AM Gout Aug 20 2016 11:43AM ferry terminal agent medication use Aug 20 2016 11:43AM Non morbid obesity due to excess calories Aug 20 2016 10:38A M Hypertension Aug 20 2016 10:38AM Hypercholesteremia Aug 20 2016 10:38AM Lipoma of head Aug 20 2016 10:38AM Hypertension May 05 2017 7:11AM Hyperlipidemia May 05 2017 7:11AM Gout May 05 2017 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 DOT 09-14-10 N/A History of Encounters Visit Date Visit Type Provider 05/05/2017 Laboratory VINNIE BELTRAN 08/20/2016 Voided VINNIE BELTRAN 08/20/2016 Office visit VINNIE BELTRAN 11/11/2014 Office visit VINNIE BELTRAN 11/26/2013 Office visit VINNIE BELTRAN 09/11/2012 Office visit VINNIE BELTRAN 01/17/2012 Office visit VINNIE BELTRAN 09/14/2010 Office visit Vinnie West 12/22/2009 Office visit Vinnie West
--- OUTSIDE RECORDS SUMMARY | 2019-11-10 18:34 | XMS REPORT ---
Author Author [facility] Organization [facility] Phys[facility] oup Address [address] [place], [place] [address] Care Team Providers Care Supervisor Long Goods Name Role Phone PCP Unavailable Allergies and Adverse Reactions Name Reaction Notes NO KNOWN DRUG ALLERGIES Plan of Treatment Planned Activity Comments Planned Date Planned Time Plan/Goal COMPLETE CBC W/AUTO DIFF WBC 10/16/2014 12:00 AM COMPREHEN METABOLIC PANEL 10/16/2014 12:00 AM LIPID PANEL 10/16/2014 12:00 AM ASSAY OF BLOOD/URIC ACID 10/16/2014 12:00 AM Medications Active Name Start Date Estimated Completion Date SIG Co mments Lasix Oral Tablet 20 mg 12/22/2009 one daily as need ed for edema allopurinol oral tablet 300 mg 11/27/2013 t corina 1 tablet (300 mg) by oral route once daily indomethacin oral capsule 50 mg 04/16/2014 take [...] HC BMI BSA BMI Percentile O2 Sat(%) 11/26/2013 3:08:00 PM 144 mmHg 68 mmHg [...] 12:00 AM URINALYSIS AUTO W/O SCOPE Reviewed Results Summary Data and Description Results [...] BILI 0.70 mg/dLCALCIUM 10.0 mg/dLeGFR >60 mL/min/1.73 [id number] 98.0 mg/dLCHOLESTEROL 257.0 mg/dLHDL 65.0 mg/dLLDL (CALC) [...] BILI 0.80 mg/dLCALCIUM 9.50 mg/dLeGFR >60 mL/min/1.73 [id number] 91.0 mg/dLCHOLESTEROL 222.0 mg/dLHDL 64.0 mg/dLLDL (CALC) 140.0 mg/dL 11/21/2013 6:25 AM URIC ACID 9.5 mg/dLWBC 4.8 R BC 4.57 HGB 14.50 g/dLHCT 43.20 %MCV 95.0 fLMCH 31.70 pgMCHC 33.60 g/dLRDW CV 12.90 %MPV 10.80 fLPLT [...] mg/dLLDL (CALC) 122.0 mg/dLPSA TOTAL 0.70 ng/mL History Of Immunizations Not available. History of [...] 4:26PM Hyperlipidemia May 28 2013 4:26PM terminal carman medication use May 28 2013 4:26PM Hypertension [...] 2014 3:43PM Gout Oct 16 2014 3:43PM correction medication use Oct 16 2014 3:43PM Screening For Prostate Cancer Oct 16 2014 3:43PM Payers Insurance Name Company Name Plan Name Plan Number Policy Number Yoan cy Group Number Start Date [id number] N/ A [facility] [phone] May [employer] DOT 09-14-10 N/A History of Encounters Visit Date Visit Type Provider 11/26/2013 Office visit VINNIE BELTRAN 09/11/2012 Office visit VINNIE BELTRAN 01/17/2012 Office visit VINNIE BELTRAN 09/14/2010 Office visit Vinnie West 12/22/2009 Office visit Vinnie West
--- OUTSIDE RECORDS SUMMARY | 2019-11-10 18:34 | XMS REPORT ---
Author Author [facility] oup Organization [facility] Phys[facility] oup Address [address] [place], [place] [address] Care Team Providers Care Division Director Name Role Phone PCP Unavailable Allergies and [...] by oral route 2 times per day Name Start Date Expiration Date SIG Comments [...] BILI 0.70 mg/dLCALCIUM 10.0 mg/dLeGFR >60 mL/min/1.73 [id number] 98.0 mg/dLCHOLESTEROL 257.0 mg/dLHDL 65.0 mg/dLLDL (CALC) [...] BILI 0.80 mg/dLCALCIUM 9.50 mg/dLeGFR >60 mL/min/1.73 [id number] 91.0 mg/dLCHOLESTEROL 222.0 mg/dLHDL 64.0 mg/dLLDL (CALC) [...] 2013 4:26PM Hyperlipidemia May 28 2013 4:26PM supervisor intermediates medication use May 28 2013 4:26PM Hypertension [...] 2014 3:43PM Gout Oct 16 2014 3:43PM supervisor intermediates medication use Oct 16 2014 3:43PM Screening For Prostate Cancer Oct 16 2014 3:43PM Payers Insurance Name Company Name Plan Name Plan Number Policy Number [place] Group Number [facility] Date [id number] [phone] [employer] 09-14-10 N/A History of Encounters Visit Date Visit Type Provider 11/26/2013 Office visit VINNIE BELTRAN 09/11/2012 Office visit VINNIE BELTRAN 01/17/2012 Office visit VINNIE BELTRAN 09/14/2010 Office visit Vinnie West 12/22/2009 Office visit Vinnie West
--- OUTSIDE RECORDS SUMMARY | 2019-11-10 18:34 | XMS REPORT ---
Author Author [facility] Organization [facility] Address [address] [place], [place] [id number] Care Team Providers Care Lpn Rn Name Role Phone PCP Unavailable Allergies and [...] BILI 0.70 mg/dLCALCIUM 10.0 mg/dLeGFR >60 mL/min/1.73 [id number] 98.0 mg/dLCHOLESTEROL 257.0 mg/dLHDL 65.0 mg/dLLDL (CALC) [...] BILI 0.80 mg/dLCALCIUM 9.50 mg/dLeGFR >60 mL/min/1.73 [id number] 91.0 mg/dLCHOLESTEROL 222.0 mg/dLHDL 64.0 mg/dLLDL (CALC) [...] 2013 4:26PM Hyperlipidemia May 28 2013 4:26PM senior software quality engineer medication use May 28 2013 4:26PM Hypertension Nov 19 2013 4:26PM Hyperlipidemia Nov 19 2013 4:26PM Gout Nov 19 2013 4:26PM custodial medication use Nov 19 2013 4:26PM Screening For Prostate Cancer Nov 19 2013 4:26PM Essential Hypertension Nov 26 2013 3:09PM Gout Nov 26 2013 3:09PM Hyperlipidemia Nov 26 2013 3:09PM Hypertension Oct 16 2014 3:43PM Hyperlipidemia Oct 16 2014 3:43PM Gout Oct 16 2014 3:43PM senior software quality engineer medication use Oct 16 2014 3:43PM Screening For Prostate Cancer Oct 16 2014 3:43PM Payers Insurance Name Company Name Plan Name Plan Number Policy Number Yoan cy Group Number [id number] [phone] May [employer] 09-14-10 N/A History of Encounters Visit Date Visit Type Provider 11/26/2013 Office visit VINNIE BELTRAN 09/11/2012 Office visit VINNIE BELTRAN 01/17/2012 Office visit VINNIE BELTRAN 09/14/2010 Office visit Vinnie West 12/22/2009 Office visit Vinnie West
--- OUTSIDE RECORDS SUMMARY | 2019-11-10 18:35 | XMS REPORT ---
Author Author Rodrick JC Organization [facility] Address [address] [place], [place] [id number] Care Team Providers Care Seam Stay Stitcher Name Role Phone VINNIE JC PCP Unavailable VINNIE JC PreferredProvider Unavailable Allergies and Adverse Reactions Name Reaction Notes NO KNOWN DRUG ALLERGIES Plan of Treatment Planned Activity Comments Planned Date Planned Time Plan/Goal CBC with Differential 08/20/2016 12:00 AM CMP 08/20/2016 12:00 AM Lipid Blood Profile 08/20/2016 12:00 AM Medications Active Name Start Date [...] 10/30/2015 TAKE 1 TABLET BY MOUTH DAILY Contrave 8-90 mg oral tablet extended release 02/19/2016 USE DIRECTED lisinopril-hydrochlorothiazide 20-25 mg oral tablet 05/05/2016 TAKE [...] the morning and evening for 30 days Problem List Description Status [...] Ordered Description Order Status 08/20/2016 12:00 AM ROUTINE VENIPUNCTURE Reviewed 09/11/2012 [...] 2013 4:26PM Hyperlipidemia May 28 2013 4:26PM care home medication use May 28 2013 4:26PM Hypertension Nov 19 2013 4:26PM Hyperlipidemia Nov 19 2013 4:26PM Gout Nov 19 2013 4:26PM care home medication use Nov 19 2013 4:26PM Screening For Prostate Cancer Nov 19 2013 4:26PM Essential Hypertension Nov 26 2013 3:09PM Gout Nov 26 2013 3:09PM Hyperlipidemia Nov 26 2013 3:09PM Hypertension Oct 16 2014 3:43PM Hyperlipidemia Oct 16 2014 3:43PM Gout Oct 16 2014 3:43PM 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 Sales [...]
--- OUTSIDE RECORDS SUMMARY | 2019-11-10 18:35 | XMS REPORT | Continuity of Care Document ---
Demographics Preferred Language Unknown Marital Status Unknown Holiness Affiliation Unknown Race Unknown Ethnic Group Unknown Author Organization Unknown Address Unknown Phone Unavailable Allergies Active Description Code Type Severity Reaction Onset Reported/Identified Relationship to Patient Clinical Status Yes No Known Drug Allergies [id number] N/A N/A Medications There is no data. Problems There is no data. Procedures There is no data. Results There is no data. Encounters ACCT No. Visit Date/Time Discharge Status Pt. Type Provider Facility Loc./Unit Complaint [id number] 03/01/2018 08:36:16 Document Registration [id number] 03/13/2018 15:56:44 03/13/2018 23:59: 59 Katherin Reno [id number] 03/06/2018 14:00:06 03/06/2018 23:59: 59 Katherin Ren[place] [id number] 02/15/2018 16:17:52 02/15/2018 23:59: 59 Katherin Reno [id number] 01/25/2018 12:26:50 01/25/2018 23:59: 59 [facility] Outpatient KATHERIN JC [id number] 05/05/2017 07:54:03 05/05/2017 23:59: 59 [facility] Outpatient KATHERIN JC [id number] 08/20/2016 10:47:40 08/20/2016 23:59: 59 [facility] Outpatient KATHERIN JC [id number] 08/20/2016 10:45:18 08/20/2016 23:59: 59 KATHERIN Jaime [id number] 12/30/2014 22:01:03 12/30/2014 23:59: 59 [facility] Outpatient KATHERIN JC [id number] 11/26/2013 15:49:28 11/26/2013 23:59: 59 KATHERIN Jaime
--- NOTE | 2019-11-10 18:41 | ED Syncope ---
General Chief Complaint: Dizziness/Syncope Stated Complaint: STROKE LIKE SYMPTOMS Source of Information: Patient, EMS History of Present Illness Date Seen by Provider: Nov 10, 2019 Time Seen by Provider: 18:23 Initial Comments PT ARRIVES VIA EMS FROM [facility] PT WAS EATING AT 1730 AND BEGAN TO HAVE CRAMPING IN HIS RIGHT HAND THIS WENT AWAY, THEN STARTED HAVING CRAMPING IN LEFT HAND WENT OUT TO VEHICLE, AND WHILE SITTING IN VEHICLE, HE STATES HE "STARTED SEEING BLACK" AND GOT LIGHT HEADED AND HAD A VERY BRIEF SYNCOPAL EPISODE WITNESSED BY . NO INJURY FROM THE INCIDENT WAS INCONTINENT OF URINE. 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 NO HISTORY OF SYNCOPE, OR CARDIAC OR NEUROLOGICAL PROBLEMS BP FOR EMS WAS 95/58, UP TO 103/60 WITH IV FLUIDS ACCUCHECK 135 FOR EMS ACCUCHECK ON ARRIVAL HERE 112 PT STATES HE DOES WORK OUTSIDE ALOT. [facility] Allergies and Home Medications Allergies Coded Allergies: No Known Drug Allergies (Unverified , 11/10/19) Patient Home Medication List Home Medication List Reviewed: Yes Review of Systems Constitutional: see HPI EENTM: see HPI Respiratory: no symptoms reported; No cough, No short of breath Cardiovascular: see HPI; No chest pain, No palpitations; syncope; No vascular heart diseas Gastrointestinal: no symptoms reported; No abdominal pain, No diarrhea, No loss of appetite, No nausea, No vomiting Genitourinary: no symptoms reported Musculoskeletal: no symptoms reported Skin: no symptoms reported Psychiatric/Neurological: See HPI (SYNCOPE); Denies Headache, Denies Numbness, Denies Paresthesia, Denies Seizure, Denies Tingling, Denies Tremors, Denies Weakness Past Wxuktid-Njpcno-Lklpuw Hx Patient Social History Alcohol Use: Regular Use (DRINKS "A FEW" BEERS EVERY DAY) Recreational Drug Use: No Smoking Status: Never a Smoker Past Medical History Surgeries: Yes (BENIGN MASS ON SCALP REMOVED; COLONOSCOPY) Appendectomy Respiratory: No Cardiac: Yes Hypertension Neurological: No Genitourinary: No Gastrointestinal: No Musculoskeletal: Yes Gout Endocrine: No HEENT: No Cancer: No Psychosocial: No Integumentary: No Blood Disorders: No Physical Exam Vital Signs Vital Signs - First Documented 11/10/19 18:25 Temp 36.2 Pulse 80 Resp 13 B/P (MAP) 111/75 (87) Pulse Ox 95 O2 Delivery Room Air Capillary Refill : Height, Weight, BMI Height: '" Weight: lbs. oz. kg; BMI Method: General Appearance: No Apparent Distress, WD/WN, Other (HAS BEEN INCONTINENT OF URINE. PT AWAKE, ALERT AND TALKING AT LENGTH WITH EMS STAFF ON ARRIVAL, AND THEN WITH ER STAFF. DOES NOT APPEAR ILL, OR TO BE IN ANY DISCOMFORT OR DISTRESS, AND DOES NOT APPEAR POST-ICTAL) HEENT: PERRL/EOMI, TMs Normal, Normal ENT Inspection, Pharynx Normal, Moist Mucous Membranes Neck: Full Range of Motion, Normal Inspection, Non Tender, Supple; No Carotid Bruit, No JVD Cardiovascular: Regular Rate, Rhythm, No Edema, No JVD, No Murmur, Normal Peripheral Pulses Respiratory: Normal Breath Sounds, No Accessory Muscle Use, No Respiratory Distress Gastrointestinal: Normal Bowel Sounds, No Organomegaly, No Pulsatile Mass, Non Tender, Soft Back: Normal Inspection Extremities: Normal Capillary Refill, Normal Inspection, Normal Range of Motion, Non Tender, No Calf Tenderness, No Pedal Edema Neurologic/Psychiatric: Alert, Oriented x3, No Motor/Sensory Deficits, Normal Mood/Affect, dough maker II-XII Norm as Tested; No Abnormal Cerebellar Tests Cranial Nerves: Normal Hearing, Normal Speech, PERRL Coordination/Gait: Normal Finger to Nose, Negative Romberg's Sign Motor/Sensory: No Motor Deficit, No Sensory Deficit, No Pronator Drift Reflexes: 2+ Bicep (R), 2+ Bicep (L), 2+ Knee (R), 2+ Knee (L) Skin: Normal Color, Warm/Dry Progress/Results/Core Measures Results/Orders Lab Results Laboratory Tests Test 11/10/19 18:30 11/10/19 19:34 11/10/19 21:07 Range/Units White Blood Count 7.7 4.3-11.0 10^3/uL Red Blood Count 4.25 L 4.35-5.85 10^6/uL Hemoglobin 13.6 13.3-17.7 G/DL Hematocrit 41 40-54 % Mean Corpuscular Volume 96 80-99 FL Mean Corpuscular Hemoglobin 32 25-34 PG Mean Corpuscular Hemoglobin Concent 33 32-36 G/DL Red Cell Distribution Width 12.7 10.0-14.5 % Platelet Count 209 130-400 10^3/uL Mean Platelet Volume 11.0 H 7.4-10.4 FL Neutrophils (%) (Auto) 63 42-75 % Lymphocytes (%) (Auto) 24 12-44 % Monocytes (%) (Auto) 11 0-12 % Eosinophils (%) (Auto) 1 0-10 % Basophils (%) (Auto) 1 0-10 % Neutrophils # (Auto) 4.9 1.8-7.8 X 10^3 Lymphocytes # (Auto) 1.9 1.0-4.0 X 10^3 Monocytes # (Auto) 0.8 0.0-1.0 X 10^3 Eosinophils # (Auto) 0.1 0.0-0.3 10^3/uL Basophils # (Auto) 0.0 0.0-0.1 10^3/uL Prothrombin Time 12.5 12.2-14.7 SEC INR Comment 0.9 0.8-1.4 Activated Partial Thromboplast Time 28 24-35 SEC Sodium Level 141 135-145 MMOL/L Potassium Level 3.2 L 3.6-5.0 MMOL/L Chloride Level 105 98-107 MMOL/L Carbon Dioxide Level 26 21-32 MMOL/L Anion Gap 10 5-14 MMOL/L Blood Urea Nitrogen 14 7-18 MG/DL Creatinine 1.13 0.60-1.30 MG/DL Estimat Glomerular Filtration Rate > 60 BUN/Creatinine Ratio 12 Glucose Level 108 H 70-105 MG/DL Glucometer 112 H 70-110 MG/DL Calcium Level 10.1 8.5-10.1 MG/DL Corrected Calcium 10.2 H 8.5-10.1 MG/DL Magnesium Level 2.2 1.6-2.4 MG/DL Total Bilirubin 0.6 0.1-1.0 MG/DL Aspartate Amino Transf (AST/SGOT) 17 5-34 U/L Alanine Aminotransferase (ALT/SGPT) 14 0-55 U/L Alkaline Phosphatase 41 40-136 U/L Total Creatine Kinase 53 30-200 U/L Creatine Kinase MB 1.1 <6.6 NG/ML Myoglobin 51.8 10.0-92.0 NG/ML Troponin I < 0.028 < 0.028 <0.028 NG/ML Total Protein 6.6 6.4-8.2 GM/DL Albumin 3.9 3.2-4.5 GM/DL Serum Alcohol < 10 <10 MG/DL Urine Color YELLOW Urine Clarity CLEAR Urine pH 6.0 5-9 Urine Specific [place] 1.025 H 1.016-1.022 Urine Protein NEGATIVE NEGATIVE Urine Glucose (UA) NEGATIVE NEGATIVE Urine Ketones NEGATIVE NEGATIVE Urine Nitrite NEGATIVE NEGATIVE Urine Bilirubin NEGATIVE NEGATIVE Urine Urobilinogen 0.2 < = 1.0 MG/DL Urine Leukocyte Esterase NEGATIVE NEGATIVE Urine RBC (Auto) NEGATIVE NEGATIVE Urine RBC NONE /HPF Urine WBC NONE /HPF Urine Crystals NONE /LPF Urine Bacteria NEGATIVE /HPF Urine Casts NONE /LPF Urine Mucus NEGATIVE /LPF Urine Culture Indicated NO Urine Opiates Screen NEGATIVE NEGATIVE Urine Oxycodone Screen NEGATIVE NEGATIVE Urine Methadone Screen NEGATIVE NEGATIVE Urine Propoxyphene Screen NEGATIVE NEGATIVE Urine Barbiturates Screen NEGATIVE NEGATIVE Ur Tricyclic Antidepressants Screen NEGATIVE NEGATIVE Urine Phencyclidine Screen NEGATIVE NEGATIVE Urine Amphetamines Screen NEGATIVE NEGATIVE Urine Methamphetamines Screen NEGATIVE NEGATIVE Urine Benzodiazepines Screen NEGATIVE NEGATIVE Urine Cocaine Screen NEGATIVE NEGATIVE Urine Cannabinoids Screen NEGATIVE NEGATIVE My Orders Orders - AWA WILL DO Accucheck Stat ONCE (11/10/19 18:32) Ed Iv/Invasive Line Start (11/10/19 18:32) Ekg Tracing (11/10/19 18:32) Monitor-Rhythm Ecg Trace Only (11/10/19 18:32) Ct Head Wo-R/O Stroke (11/10/19 18:32) Chest 1 View, Ap/Pa Only (11/10/19 18:32) Alcohol (11/10/19 18:32) Cbc With Automated Diff (11/10/19 18:32) Comprehensive Metabolic Panel (11/10/19 18:32) Creatine Kinase (11/10/19 18:32) Creatine Kinase Mb (11/10/19 18:32) Drug Screen Stat (Urine) (11/10/19 18:32) Magnesium (11/10/19 18:32) Protime With Inr (11/10/19 18:32) Partial Thromboplastin Time (11/10/19 18:32) Ua Culture If Indicated (11/10/19 18:32) Myoglobin Serum (11/10/19 18:32) Troponin I (11/10/19 18:32) Vital Signs Stroke Patient Q15M (11/10/19 18:32) Intake & Output 06,14,22 (11/10/19 18:32) Dysphagia Screening Tool (11/10/19 18:32) Ct Angio Head/Neck (11/10/19 19:20) Ed Iv/Invasive Line Start (11/10/19 19:24) Lactated Ringers (Lr 1000 Ml Iv Solution (11/10/19 19:24) Potassium Chloride (Tablet) (Klor Con Ta (11/10/19 19:30) Iohexol Injection (Omnipaque 350 Mg/Ml 1 (11/10/19 19:30) Received Contrast (Hold Metformin- Contr (11/10/19 19:30) Sodium Chloride Flush (Catheter Flush Sy (11/10/19 19:30) Ns (Ivpb) (Sodium Chloride 0.9% Ivpb Bag (11/10/19 19:30) Ed Iv/Invasive Line Start (11/10/19 21:00) Ns Iv 1000 Ml (Sodium Chloride 0.9%) (11/10/19 21:00) Ed Iv/Invasive Line Start (11/10/19 21:01) Lactated Ringers (Lr 1000 Ml Iv Solution (11/10/19 21:01) Ekg Tracing (11/10/19 21:02) Troponin I (11/10/19 21:02) Medications Given in ED Current Medications Medications Dose Ordered Sig/Saira Route Start Time Stop Time Status Last Admin Dose Admin Iohexol 100 ml ONCE ONCE IV 11/10/19 19:30 11/10/19 19:31 DC 11/10/19 19:48 75 ML Lactated Ringer's 1,000 ml @ 0 mls/hr Q0M ONCE IV 11/10/19 19:24 11/10/19 19:25 DC 11/10/19 19:51 0 MLS/HR Lactated Ringer's 1,000 ml @ 0 mls/hr Q0M ONCE IV 11/10/19 21:01 11/10/19 21:02 DC 11/10/19 21:07 0 MLS/HR Potassium Chloride 20 meq ONCE ONCE PO 11/10/19 19:30 11/10/19 19:31 DC 11/10/19 19:51 20 MEQ Sodium Chloride 10 ml NEEDED PRN IV 11/10/19 19:30 11/10/19 22:18 DC 11/10/19 19:49 10 ML Sodium Chloride 100 ml ONCE ONCE IV 11/10/19 19:30 11/10/19 19:31 DC 11/10/19 19:49 80 ML Vital Signs/I&O 11/10/19 11/10/19 18:25 22:27 Temp 36.2 36.2 Pulse 80 80 Resp 13 13 B/P (MAP) 111/75 (87) 116/71 (87) Pulse Ox 95 95 O2 Delivery Room Air 11/11/19 00:00 Intake Total 14783 ml Balance 50999 ml Progress Progress Note : Progress Note COMPLETELY ASYMPTOMATIC FOR ENTIRE ER STAY PT GIVEN IV FLUIDS, REPEAT EKG AND TROPONIN DONE BLOOD PRESSURE UP TO 120'S SYSTOLIC AT TIME OF DISMISSAL PT AMBULATED TO AND FROM BATHROOM WITH OUT ANY DIFFICULTY, NO SYMPTOMS AND VITALS STABLE. Initial ECG Impression Date: Nov 10, 2019 Initial ECG Impression Time: 18:28 Initial ECG Rate: 90 Initial ECG Rhythm: Normal Sinus Initial ECG Comparisson: No Previous ECG Available EKG : EKG Time: 21:04 Rate: 78 Rhythm: Normal Sinus ECG Comparisson: Unchanged Diagnostic Imaging Comments CT HEAD--PER RADIOLOGIST REPORT AT 1911 IMPRESSION: 1. There is no evidence for an acute intracranial abnormality. There is no sign of a mass lesion either. 2. If clinical concern regarding an underlying abnormality persists and further imaging is desired, then MRI would be recommended. CXR--NO ACUTE PROCESS, PER RADIOLOGIST REPORT AT 2 Reviewed: Reviewed by Me Departure Communication (Admissions) 2099--SPOKE WITH DR. COURTNEY, HOSPITALIST, SHE ADVISES THAT PT HAS BEEN ASYMPTOMATIC, GIVE ADDITIONAL IV FLUIDS AND REPEAT TROPONIN AND EKG, AND IF STILL NEGATIVE, ADVISES TO SEND HOME AND FOLLOW UP WITH PCP ON TUESDAY. Impression Primary Impression: Syncope Additional Impression: Hypovolemia Disposition: 01 HOME, SELF-CARE Condition: Improved Departure-Patient Inst. Referrals: KATHERIN JC (PCP/Family) Primary Care Physician Patient Instructions: Syncope (Fainting) (DC), Dehydration, Adult (DC) Add. Discharge Instructions: INCREASE YOUR CLEAR LIQUIDS--WATER, BROTH, JELLO, GATORADE DRINK ENOUGH SO YOU ARE URINATING EVERY 2-3 HOURS WHILE AWAKE AVOID ALCOHOL CONTINUE YOUR CURRENT MEDICATIONS PRESCRIBED FOLLOW UP WITH YOUR DR ON TUESDAY FOR FURTHER CARE RETURN TO ER IF WORSE OR SYMPTOMS RETURN All discharge instructions reviewed with patient and/or family. Voiced understanding. AWA WILL DO Nov 10, 2019 18:41
[2019-11-10 18:53] LABS: INR 0.9 (0.8-1.4); PROTHROMBIN TIME PATIENT 12.5 SEC (12.2-14.7)
[2019-11-10 18:56] LABS: ALANINE AMINOTRANSFERASE 14 U/L (0-55); ALBUMIN 3.9 GM/DL (3.2-4.5); ALKALINE PHOSPHATASE 41 U/L (40-136); BILIRUBIN,TOTAL 0.6 MG/DL (0.1-1.0); BUN/CREATININE RATIO 12; CALCIUM 10.1 MG/DL (8.5-10.1); CARBON DIOXIDE 26 MMOL/L (21-32); CHLORIDE 105 MMOL/L (98-107); CREATINE KINASE 53 U/L (30-200); CREATININE SERUM 1.13 MG/DL (0.60-1.30); GFR ESTIMATED > 60; GLUCOSE 108 MG/DL (70-105); MAGNESIUM 2.2 MG/DL (1.6-2.4); POTASSIUM 3.2 MMOL/L (3.6-5.0); SODIUM 141 MMOL/L (135-145); TOTAL PROTEIN 6.6 GM/DL (6.4-8.2)
--- NOTE | 2019-11-10 18:59 | Diagnostic Imaging Report ---
PROCEDURE: CT head wo r/o stroke. TECHNIQUE: Multiple contiguous axial images were obtained through the brain without the use of intravenous contrast. Auto Exposure Controls were utilized during the CT exam to meet ALARA standards for radiation dose reduction. INDICATION: Syncope There are no prior studies available for comparison. There is no mass, shift of the midline or hemorrhage to suggest an acute intracranial abnormality. There is no evidence of asymmetric hyperdense vessel either. The ventricles are not abnormally dilated. The bone windows show no sign of a fracture or of a destructive lesion. The orbits and sinuses were not visualized in their entirety. Where visualized, there is no acute abnormality. IMPRESSION: 1. There is no evidence for an acute intracranial abnormality. There is no sign of a mass lesion either. 2. If clinical concern regarding an underlying abnormality persists and further imaging is desired, then MRI would be recommended. Dictated by: Dictated on workstation # [id number]
[2019-11-10 19:02] LABS: BASOPHILS % (AUTO) 1 % (0-10); EOSINOPHILS # (AUTO) 0.1 10^3/uL (0.0-0.3); EOSINOPHILS % (AUTO) 1 % (0-10); HEMATOCRIT 41 % (40-54); HEMOGLOBIN 13.6 G/DL (13.3-17.7); LYMPHOCYTES # (AUTO) 1.9 X 10^3 (1.0-4.0); LYMPHOCYTES % (AUTO) 24 % (12-44); MEAN CORPUSCULAR HEMOGLOBIN 32 PG (25-34); MEAN CORPUSCULAR HGB CONC 33 G/DL (32-36); MEAN CORPUSCULAR VOLUME 96 FL (80-99); MONOCYTES # (AUTO) 0.8 X 10^3 (0.0-1.0); MONOCYTES % (AUTO) 11 % (0-12); NEUTROPHILS # (AUTO) 4.9 X 10^3 (1.8-7.8); NEUTROPHILS % (AUTO) 63 % (42-75); PLATELET COUNT 209 10^3/uL (130-400); RED CELL DISTRIBUTION WIDTH 12.7 % (10.0-14.5); WHITE BLOOD COUNT 7.7 10^3/uL (4.3-11.0)
--- NOTE | 2019-11-10 19:02 | Diagnostic Imaging Report ---
EXAMINATION: PA chest at 6:58 pm INDICATION: Syncope There are no prior studies available for comparison. The heart size is within normal limits. The lungs are clear. There is no evidence for failure, pneumonia or for a pleural effusion. The mediastinum is not widened. The osseous structures are intact. IMPRESSION: There is no evidence for active disease. Dictated by: Dictated on workstation # [id number]
[2019-11-10 19:03] LABS: CREATINE KINASE MB 1.1 NG/ML (<6.6)
--- NOTE | 2019-11-10 19:19 | NUR ---
REPORT FROM LOYDA RAPHAEL
[2019-11-10] MEDS ORDERED: LACTATED RINGERS 1,000 ML IV ONE ×2 (19:24→21:01)
[2019-11-10] MEDS ORDERED: HOLD METFORMIN - RECEIVED CONTRAST 20 ML VIAL IV SCH (19:30)
[2019-11-10] MEDS ORDERED: KCL 10 MEQ TAB (MICRO K) PO ONE (19:30)
[2019-11-10] MEDS ORDERED: CATHETER FLUSH 10 ML SYR IV PRN (19:30)
[2019-11-10] MEDS ORDERED: IOHEXOL 350 MG/ML 100 ML (OMNIPAQUE 350) VIAL IV ONE (19:30)
[2019-11-10] MEDS ORDERED: NS 100 ML (IVPB) BAG IV ONE (19:30)
[2019-11-10 19:45] LABS: BILIRUBIN,URINE NEGATIVE (NEGATIVE); CLARITY,URINE CLEAR; COLOR,URINE YELLOW; GLUCOSE, URINE (UA) NEGATIVE (NEGATIVE); KETONES,URINE NEGATIVE (NEGATIVE); LEUKOCYTE ESTERASE ,URINE NEGATIVE (NEGATIVE); NITRITE,URINE NEGATIVE (NEGATIVE); PROTEIN,URINE NEGATIVE (NEGATIVE)
[2019-11-10 19:54] LABS: BACTERIA,URINE NEGATIVE /HPF
[2019-11-10 20:05] LABS: AMPHETAMINE SCREEN, URINE NEGATIVE (NEGATIVE); BARBITURATE SCREEN URINE NEGATIVE (NEGATIVE); BENZODIAZEPINES SCREEN URINE NEGATIVE (NEGATIVE); CANNABINOID SCREEN, URINE NEGATIVE (NEGATIVE); COCAINE SCREEN URINE NEGATIVE (NEGATIVE); METHADONE STAT NEGATIVE (NEGATIVE); METHAMPHETAMINE SCREEN URINE S NEGATIVE (NEGATIVE); OPIATE SCREEN URINE NEGATIVE (NEGATIVE); OXYCODONE STAT NEGATIVE (NEGATIVE); PROPOXYPHENE STAT NEGATIVE (NEGATIVE); TRICYCLIC ANTIDEPRESSANTS SCRE NEGATIVE (NEGATIVE)
--- NOTE | 2019-11-10 20:08 | Diagnostic Imaging Report ---
PROCEDURE: CT angiography of the head and CT angiography of the neck with and without contrast. TECHNIQUE: Contiguous noncontrast images were obtained from the skull base through the vertex. After intravenous contrast administration, helical CT angiography of the neck was performed. Source data was reformatted into 3D MIP projections. Delayed post contrast acquisition was also obtained. Auto Exposure Controls were utilized during the CT exam to meet ALARA standards for radiation dose reduction. INDICATION: Syncope The CT head exam performed prior to the study failed to show any sign of an acute intracranial abnormality. On this study, there is no evidence for a large vessel occlusion. There is no sign of an aneurysm of the [place] either. The images through the neck failed to show any sign of a hemodynamically significant stenosis of either carotid system. Both vertebral arteries were opacified and the vertebral arteries are codominant. There is no mass or adenopathy involving the neck. The parotid and submandibular glands are generally unremarkable. The thyroid gland does not appear to be enlarged. The lung apices are clear. The bone windows show degenerative disc and bony disease at C5-C6 and C6-C7. There is no acute bony abnormality noted. IMPRESSION: 1. There is no evidence for a large vessel occlusion and there is no sign of an aneurysm of the [place] of [place]. If clinical concern regarding an acute intracranial abnormality persists, then MRI would be recommended for further study. 2. There is no hemodynamically significant stenosis of either carotid system. The vertebral bodies are codominant. Dictated by: Dictated on workstation # [id number]
--- NOTE | 2019-11-10 20:46 | NUR ---
Report from IJEOMA Galeas
[2019-11-10] MEDS ORDERED: NS IV 1000 ML 1,000 ML IV SCH (21:00)
--- NOTE | 2019-11-10 21:56 | NUR ---
Pt walked to bathroom at this time, tolerated well.
[2019-11-10 22:27] VITALS: BP 116/71
== END 2019-11-10 22:18 | disposition home or self-care (01) ==
LOC: ER 18:28
DX: R55 Syncope and collapse (principal); E86.1 Hypovolemia
CPT/HCPCS: 70450; 70496; 70498; 71045; 80053; 80306; 81000; 82550; 82553; 82962; 83735; 83874; 84484; 85025; 85610; 85730; 93005; 93041; 99284; G0480; 36415; 80320